=== PATIENT | female | born 1950 | race Caucasian/White ===

== ENCOUNTER 2022-07-25 07:29 | Day surgery (SDC) | payer MEDICARE ==
[~2022-07-25] VITALS: Ht 162.6 cm; Wt 89.3 kg
[~2022-07-25 07:29] MED LIST: Acarbose25 MG PO; BELSOMRA5 MG PO; LEVSOD75 PO; NABU500; PANT40 PO; TRAM50 PO; Vitamin D1000 UNI1
--- NOTE | 2022-07-25 07:52 | NUR ---
07/25/22 0752 Ananda Alejandre WITHIN REACH. TETRACAIN IN THE LEFT EYE AT 0750 PLEDGETT AT 0751
== END 2022-07-25 09:20 | disposition home or self-care (01) ==
LOC: ORSCSDS 07:29
PROVIDERS: Student in an Organized Health Care Education/Training Program
PROC: 08DK3ZZ Extraction of Left Lens, Percutaneous Approach (ICD-10-PCS; principal; 2022-07-25 08:45)
DX: H25.12 Age-related nuclear cataract, left eye (principal); Z96.1 Presence of intraocular lens; J45.909 Unspecified asthma, uncomplicated; E03.9 Hypothyroidism, unspecified; G47.33 Obstructive sleep apnea (adult) (pediatric); E66.9 Obesity, unspecified; Z68.33 Body mass index [BMI] 33.0-33.9, adult; Z79.899 Other long term (current) drug therapy
CPT/HCPCS: 82947; J2250; J3010; J7040; V2632

== ENCOUNTER → 2022-09-28 | Outpatient (CLI) | payer MEDICARE | END | disposition home or self-care (01) | LOC: LAB SHORT 07:47 → PLD 07:47 | DX: L60.2 Onychogryphosis (principal); B35.1 Tinea unguium | CPT/HCPCS: 88305; 88312 ==

== ENCOUNTER → 2023-08-23 | Outpatient (CLI) | payer MEDICARE | LOC: LAB 13:54 → LAB SHORT 13:54 | DX: L08.9 Local infection of the skin and subcutaneous tissue, unspecified (principal) | CPT/HCPCS: 87070; 87077; 87147; 87186; 87205 ==

== ENCOUNTER → 2023-09-06 | Outpatient (CLI) | payer MEDICARE | LOC: LAB 16:42 → LAB SHORT 16:42 | DX: L08.9 Local infection of the skin and subcutaneous tissue, unspecified (principal); B96.5 Pseudomonas (aeruginosa) (mallei) (pseudomallei) as the cause of diseases classified elsewhere; Z08 Encounter for follow-up examination after completed treatment for malignant neoplasm; Z85.828 Personal history of other malignant neoplasm of skin | CPT/HCPCS: 87070; 87205 ==

== ENCOUNTER → 2024-02-13 | Outpatient (CLI) | payer MEDICARE | LOC: LAB SHORT 09:05 → LAB 09:05 | DX: L60.2 Onychogryphosis (principal); B35.1 Tinea unguium | CPT/HCPCS: 88305; 88312 ==

== ENCOUNTER 2024-04-28 07:58 | Emergency (ER) | payer MEDICARE ==
[~2024-04-28] VITALS: Ht 162.6 cm; Wt 86.2 kg
[2024-04-28] MEDS ORDERED: DULOXETINE HCL60 M1 PO (08:30)
[2024-04-28] MEDS ORDERED: Methocarbamol750 MG PO (08:30)
[2024-04-28] MEDS ORDERED: Acetaminophen 500 MG Tab PO ONE (09:20)
[2024-04-28] MEDS ORDERED: Lidocaine 4% 1 Patch TOP ONE (09:25)
[2024-04-28] MEDS ORDERED: Cyclobenzaprine HCl 10 MG Tab PO ONE (09:25)
[2024-04-28] MEDS ORDERED: Ketorolac Tromethamine 30mg Vial IM ONE (09:25)
[2024-04-28 10:44] VITALS: BP 132/71
[2024-04-28] MEDS ORDERED: CYCL10 PO (10:45)
[2024-04-28] MEDS ORDERED: LIDO700A20 TOP (10:45)
== END 2024-04-28 11:07 | disposition home or self-care (01) ==
LOC: ER 07:58
DX: M54.16 Radiculopathy, lumbar region (principal); G89.29 Other chronic pain; J45.909 Unspecified asthma, uncomplicated; E03.9 Hypothyroidism, unspecified; Z79.899 Other long term (current) drug therapy; Z88.5 Allergy status to narcotic agent
CPT/HCPCS: 96372; 99283-25; A9270; J1885

== ENCOUNTER 2024-09-02 13:32 | Day surgery (SDC) | payer MEDICARE ==
[~2024-09-02] VITALS: Ht 162.6 cm; Wt 87.9 kg
[~2024-09-02 13:32] MED LIST changes: +Atropine Sulfate 0.1 MG/ML 10ML SYR ONE; +CYCL10 PO; +DULOXETINE HCL60 M1 PO; +Glycopyrrolate 0.2 MG/ML 1MLVIAL ONE; +LIDO700A20 TOP; +Lactated Ringer's 1,000 ML IV ONE; +Lidocaine 2% 5 ML SDV ONE; +Lidocaine HCl/Pf 1% 5 ML VIAL ONE; +Methocarbamol750 MG PO; +Methylene Blue 1% 100 MG/10 ML VIAL ONE; +Ondansetron HCl 2 MG / ML 2ML Vial ONE; +ePHEDrine Sulfate 50 MG/ML 1ML Injection ONE; +propofoL 50 ML IV ONE
[2024-09-02] MEDS ORDERED: BELSOMRA5 MG (13:49)
[2024-09-02] MEDS ORDERED: PREG50 (14:02)
[2024-09-02] MEDS ORDERED: CALCIUM-MAGNES1 EAC9 (14:02)
[2024-09-02] MEDS ORDERED: BERBERINE500 MG (14:03)
[2024-09-02] MEDS ORDERED: Lactated Ringer's 1,000 ML IV ONE (14:30)
[2024-09-02 15:53] VITALS: BP 93/61
== END 2024-09-02 15:46 | disposition home or self-care (01) ==
LOC: ORSCSDS 13:32
PROVIDERS: Internal Medicine Gastroenterology
PROC: 0DBL8ZX Excision of Transverse Colon, Via Natural or Artificial Opening Endoscopic, Diagnostic (ICD-10-PCS; principal; 2024-09-02 15:00)
PROC: 0DBM8ZX Excision of Descending Colon, Via Natural or Artificial Opening Endoscopic, Diagnostic (ICD-10-PCS; principal; 2024-09-02 15:00)
PROC: 0DB68ZX Excision of Stomach, Via Natural or Artificial Opening Endoscopic, Diagnostic (ICD-10-PCS; 2024-09-02 15:00)
DX: K21.9 Gastro-esophageal reflux disease without esophagitis (principal); Z12.11 Encounter for screening for malignant neoplasm of colon; Z86.0101 Personal history of adenomatous and serrated colon polyps; Z83.719 Family history of colon polyps, unspecified; R13.10 Dysphagia, unspecified; K22.70 Barrett's esophagus without dysplasia; D12.4 Benign neoplasm of descending colon; D12.3 Benign neoplasm of transverse colon; K57.30 Diverticulosis of large intestine without perforation or abscess without bleeding; E66.9 Obesity, unspecified; G47.33 Obstructive sleep apnea (adult) (pediatric); Z87.891 Personal history of nicotine dependence; Z79.899 Other long term (current) drug therapy
CPT/HCPCS: 88305; 88342; J0461; J2003; J2405; J2704; J7120; Q9968